=== PATIENT | male | born 1975 | race African-American/Black ===

== ENCOUNTER 2023-11-11 01:22 | Inpatient (IN) | payer OTHER ==
[2023-11-11] MEDS ORDERED: Ondansetron PF 4 MG/2 ML Vial ONE (02:02)
[2023-11-11] MEDS ORDERED: Morphine 4 MG/ML VIAL ONE ×2 (02:02→07:20)
[2023-11-11 02:32] LABS: Actual Bicarbonate (HCO3v) 25.4 mEq/L (22-28); Base Excess 0.4 mEq/L (-2.0 to +3.0); Calcium, Ionized (venous) 1.06 mmol/L (1.16-1.32); Chloride (VBG) 98 mmol/L (98-106); Hematocrit-VBG 46 % (42.0-52.0); Hemoglobin (Hb) 15.7 g/dL (13.1-17.2); Sodium 133 mmol/L (133-146); pH (venous) 7.398 (7.32-7.43)
[2023-11-11 02:33] LABS: Potassium (VBG) 6.79 mmol/L (3.70-5.30)
[2023-11-11 02:52] LABS: #Basophils 0.05 10x3/uL (0.0-0.2); %Basophils 0.5 % (0.0-1.0); %Eosinophils 2.7 % (0.0-10.0); %Lymphocytes 14.2 % (21.0-51.0); %Monocytes 4.8 % (0.0-10.0); %Neutrophils 77.4 % (42.0-75.0); Hematocrit 42.7 % (42.0-52.0); Mean Corpuscular HGB CONC 35.1 g/dL (32.0-36.0); Mean Corpuscular Hemoglobin 32.5 pg (27.0-31.0); Mean Corpuscular Volume 92.6 fL (78.0-98.0); Platelet Count 312 10x3/uL (130-400); RBC Distribution Width 12.2 % (11.5-14.5); Red Blood Cell (RBC) Count 4.61 mill/uL (4.70-6.10)
[2023-11-11 02:53] LABS: Troponin I 0.017 ng/mL (< 0.028)
[2023-11-11 03:20] LABS: BUN (Urea Nitrogen) Less than 15 mg/dL (8.9-20.6)
[2023-11-11 03:35] LABS: Bilirubin Negative (Negative); Blood, Urine Negative (Negative); Glucose, Urine (Dipstick) >=1000 mg/dL (Negative); Ketone, Urine 15 mg/dL (Negative); Leukocyte Negative (Negative); Nitrite Negative (Negative); Protein, Urine (Dipstick) Negative (Neg-Trace)
[2023-11-11 03:36] LABS: Clarity Clear (Clear)
[2023-11-11 03:38] LABS: Bacteria/HPF None Seen HPF (None Seen); CAUTI Indications for Culture Pelvic or flank pain; RBC/HPF 0-3 HPF (0-3); Squamous Epithelial 0-3 HPF (0-3); WBC/HPF 0-3 HPF (0-3)
[2023-11-11 03:40] LABS: Specific Gravity, Urine 1.046 (1.002-1.036)
[2023-11-11 03:42] LABS: Urine Culture Reflex No No
[2023-11-11 06:49] LABS: Albumin 3.9 g/dL (3.5-5.0); Anion Gap 18 mmol/L (10-20); Bilirubin, Total 0.7 mg/dL (0.2-1.2); Calc. Creatinine Clearance 0 mL/min (70-130); Calcium 9.3 mg/dL (7.8-10.44); Chloride 99 mmol/L (98-107); Estimated GFR 83; Globulin 4.3 g/dL (2.4-3.5); Glucose 300 mg/dL (70-105); Lipase 58 U/L (8-78); Potassium 5.2 mmol/L (3.5-5.1); Protein, Total 8.2 g/dL (6.0-8.3); Sodium 133 mmol/L (136-145)
[2023-11-11 07:18] LABS: Alkaline Phosphatase 82 U/L (40-110)
[2023-11-11 07:21] LABS: ALT (SGPT) 36 U/L (8-55)
[2023-11-11 07:30] LABS: AST (SGOT) 38 U/L (5-34)
[2023-11-11 07:31] LABS: Carbon Dioxide 18 mmol/L (22-29)
[2023-11-11] MEDS ORDERED: Acetaminophen 500 MG TAB ONE (07:43)
[2023-11-11] MEDS ORDERED: Ketorolac Tromethamine 30 MG (1 mL) VIAL ONE (07:43)
[2023-11-11] MEDS ORDERED: Ondansetron ODT 4 MG TAB PO PRN (07:44)
[2023-11-11] MEDS ORDERED: Ondansetron PF 4 MG/2 ML Vial IVP PRN (07:44)
[2023-11-11] MEDS ORDERED: Acetaminophen 650 MG Suppository PR PRN (07:44)
[2023-11-11] MEDS ORDERED: Lactated Ringer's 1,000 ML IV SCH (08:00)
[2023-11-11 08:03] LABS: Hemoglobin A1c 7.5 % (4.0-6.0)
[2023-11-11] MEDS ORDERED: Dextrose 5% in Water 1,000 ML IV PRN (08:05)
[2023-11-11] MEDS ORDERED: Dextrose 50% Abboject 50 ML SYRINGE SLOW IVP PRN (08:05)
[2023-11-11] MEDS ORDERED: Glucagon 1 MG/ML KIT IM PRN (08:05)
[2023-11-11] MEDS: Morphine 4 MG/ML VIAL SLOW IVP SCH (08:52)
[2023-11-11] MEDS: Famotidine 20 MG TAB PO SCH (09:19)
[2023-11-11] MEDS: Famotidine/PF 20 mg/2ml Vial SLOW IVP SCH (09:19)
[2023-11-11] MEDS: Dextrose 5%-Lactated Ringers 1,000 ML IV SCH (09:19)
[2023-11-11] MEDS: Insulin Reg, Human 100 UNITS in Sodium Chloride 0.9% 100 ML IVPB SCH (09:19)
[2023-11-11] MEDS: Fluticasone Propionate HFA 44 MCG AER INH SCH (10:07)
[2023-11-11 10:45] VITALS: BMI 34.8
[2023-11-11 11:00] LABS: Glucose 297 mg/dL (70-105)
[2023-11-11 12:14] LABS: Glucose 272 mg/dL (70-105)
[2023-11-11] MEDS: NIFEdipine XL 30 MG ER.TAB PO SCH (13:06)
[2023-11-11] MEDS ORDERED: Iopamidol-370 76% 500 ML MDV (1 ML CHARGE) ONE (13:29)
[2023-11-11] MEDS: Morphine 2 MG/ML VIAL SLOW IVP PRN (14:19)
[2023-11-11 14:25] LABS: Glucose 267 mg/dL (70-105)
[2023-11-11 16:45] LABS: Glucose 208 mg/dL (70-105)
[2023-11-11 18:20] LABS: Glucose 208 mg/dL (70-105)
[2023-11-11] MEDS: Mometasone 100 MCG HFA INHALER (RT USE) INH SCH (18:48)
[2023-11-11 20:15] LABS: Glucose 170 mg/dL (70-105)
[2023-11-11 22:27] LABS: Glucose 155 mg/dL (70-105)
[2023-11-12 00:15] LABS: Glucose 156 mg/dL (70-105)
[2023-11-12 02:32] LABS: Glucose 142 mg/dL (70-105)
[2023-11-12 05:19] LABS: #Basophils 0.04 10x3/uL (0.0-0.2); %Basophils 0.3 % (0.0-1.0); %Eosinophils 0.5 % (0.0-10.0); %Lymphocytes 10.9 % (21.0-51.0); %Monocytes 6.4 % (0.0-10.0); %Neutrophils 81.4 % (42.0-75.0); Hematocrit 43.4 % (42.0-52.0); Hemoglobin 15.8 g/dL (14.0-18.0); Mean Corpuscular HGB CONC 36.4 g/dL (32.0-36.0); Mean Corpuscular Hemoglobin 32.2 pg (27.0-31.0); Mean Corpuscular Volume 88.4 fL (78.0-98.0); Mean Platelet Volume 11.4 fL (7.4-10.4); Platelet Count 140 10x3/uL (130-400); RBC Distribution Width 11.4 % (11.5-14.5); Red Blood Cell (RBC) Count 4.91 mill/uL (4.70-6.10)
[2023-11-12 05:36] LABS: Glucose 124 mg/dL (70-105)
[2023-11-12] MEDS: NIFEdipine XL 30 MG ER.TAB PO SCH (07:16)
[2023-11-12] MEDS: Acetaminophen 325 MG TAB PO PRN (07:16)
[2023-11-12 08:06] LABS: ALT (SGPT) 27 U/L (8-55); AST (SGOT) 21 U/L (5-34); Albumin 3.5 g/dL (3.5-5.0); Alkaline Phosphatase 63 U/L (40-110); Anion Gap 14 mmol/L (10-20); BUN (Urea Nitrogen) 6 mg/dL (8.9-20.6); Bilirubin, Total 1.2 mg/dL (0.2-1.2); Calc. Creatinine Clearance 168 mL/min (70-130); Calcium 9.4 mg/dL (7.8-10.44); Carbon Dioxide 23 mmol/L (22-29); Chloride 99 mmol/L (98-107); Estimated GFR 107; Globulin 3.5 g/dL (2.4-3.5); Glucose 185 mg/dL (70-105); Potassium 3.9 mmol/L (3.5-5.1); Sodium 132 mmol/L (136-145)
[2023-11-12] MEDS ORDERED: Albuterol 200 PUFF (6.7GM INHALER) INH PRN (10:00)
[2023-11-12] MEDS ORDERED: Azelastine 137 MCG/NASAL Spray 30 ML NS PRN (10:08)
[2023-11-12] MEDS: Fenofibrate Nanocrystallized 145 MG TAB PO SCH (10:23)
[2023-11-12] MEDS: Acetaminophen 500 MG TAB PO SCH (14:30)
[2023-11-12] MEDS: Alogliptin 6.25 MG TAB PO SCH (16:00)
[2023-11-12] MEDS: Polyethylene Glycol 3350 17 GM Packet PO SCH (16:00)
[2023-11-12] MEDS: HumaLOG 300 UNITS/3 ML VIAL SC PRN (17:02)
[2023-11-12] MEDS: Mometasone 100 MCG/Formoterol 5 MCG 120 PUFF INHALER INH SCH (19:21)
[2023-11-12] MEDS: Montelukast Sodium 10 mg Tablet PO SCH (20:13)
[2023-11-13] MEDS: Lidocaine 4% Patch TD SCH (03:38)
[2023-11-13] MEDS: Alogliptin 6.25 MG TAB PO SCH (08:07)
[2023-11-13] MEDS: Fenofibrate Nanocrystallized 145 MG TAB PO SCH (08:08)
[2023-11-13] MEDS: Polyethylene Glycol 3350 17 GM Packet PO SCH (08:08)
[2023-11-13 08:19] LABS: #Basophils 0.05 10x3/uL (0.0-0.2); %Basophils 0.3 % (0.0-1.0); %Eosinophils 0.6 % (0.0-10.0); %Lymphocytes 10.7 % (21.0-51.0); %Monocytes 6.9 % (0.0-10.0); %Neutrophils 80.9 % (42.0-75.0); Hematocrit 45.4 % (42.0-52.0); Hemoglobin 15.6 g/dL (14.0-18.0); Mean Corpuscular HGB CONC 34.4 g/dL (32.0-36.0); Mean Corpuscular Hemoglobin 32.3 pg (27.0-31.0); Mean Platelet Volume 11.7 fL (7.4-10.4); Platelet Count 157 10x3/uL (130-400); RBC Distribution Width 12.1 % (11.5-14.5); Red Blood Cell (RBC) Count 4.83 mill/uL (4.70-6.10)
[2023-11-13 08:37] LABS: Anion Gap 15 mmol/L (10-20); BUN (Urea Nitrogen) 10 mg/dL (8.9-20.6); Calc. Creatinine Clearance 137 mL/min (70-130); Carbon Dioxide 26 mmol/L (22-29); Chloride 99 mmol/L (98-107); Estimated GFR 88; Glucose 214 mg/dL (70-105); Sodium 136 mmol/L (136-145)
[2023-11-13] MEDS: Transdermal Patch Removal TOP SCH (14:51)
[2023-11-13] MEDS ORDERED: Bisacodyl 10 MG SUPP PR PRN (17:05)
[2023-11-13] MEDS: LevoFLOXacin 750 mg/D5W 750 MG in Premix 1 BAG IVPB SCH (17:52)
[2023-11-13] MEDS: HumaLOG 300 UNITS/3 ML VIAL SC PRN (20:53)
[2023-11-14 05:12] LABS: #Basophils 0.05 10x3/uL (0.0-0.2); %Basophils 0.4 % (0.0-1.0); %Eosinophils 1.6 % (0.0-10.0); %Monocytes 9.5 % (0.0-10.0); %Neutrophils 70.9 % (42.0-75.0); Hematocrit 43.4 % (42.0-52.0); Hemoglobin 14.7 g/dL (14.0-18.0); Mean Corpuscular HGB CONC 33.9 g/dL (32.0-36.0); Mean Corpuscular Hemoglobin 31.7 pg (27.0-31.0); Mean Corpuscular Volume 93.5 fL (78.0-98.0); Mean Platelet Volume 11.2 fL (7.4-10.4); Platelet Count 177 10x3/uL (130-400); RBC Distribution Width 12.4 % (11.5-14.5); Red Blood Cell (RBC) Count 4.64 mill/uL (4.70-6.10)
[2023-11-14 05:41] LABS: Anion Gap 13 mmol/L (10-20); BUN (Urea Nitrogen) 17 mg/dL (8.9-20.6); Calc. Creatinine Clearance 129 mL/min (70-130); Calcium 9.4 mg/dL (7.8-10.44); Carbon Dioxide 26 mmol/L (22-29); Chloride 100 mmol/L (98-107); Estimated GFR 81; Glucose 197 mg/dL (70-105); Potassium 3.9 mmol/L (3.5-5.1); Sodium 135 mmol/L (136-145)
[2023-11-14 07:56] VITALS: TEMP 98.1
[2023-11-14] MEDS ORDERED: LevoFLOXacin 750 MG TAB PO SCH ×2 (12:00→15:00)
[2023-11-14] MEDS: LevoFLOXacin 750 MG TAB PO SCH (12:22)
[2023-11-14 12:35] VITALS: BP 123/85
== END 2023-11-14 12:36 | disposition home or self-care (01) | DRG 440 ==
LOC: ERS 01:22 → IMCU/EMU 08:48 → T4-A 11-12 13:16
PROVIDERS: ADMIT Student in an Organized Health Care Education/Training Program; ATTEND Hospitalist
DX: K85.90 Acute pancreatitis without necrosis or infection, unspecified (principal); E78.1 Pure hyperglyceridemia; E11.9 Type 2 diabetes mellitus without complications; J45.909 Unspecified asthma, uncomplicated; E87.5 Hyperkalemia; Z79.899 Other long term (current) drug therapy
CPT/HCPCS: 36415; 36416; 74177; 80048; 80053; 81001; 82010; 82805; 83036; 83605; 83690; 84478; 84484; 85025; 87040; 93005; J1815; J1885; J1956; J2270; J2272; J2405; J3490; Q9967; S0028